=== PATIENT | female | born 1975 | race Caucasian/White ===

== ENCOUNTER 2019-01-30 22:23 | Inpatient (IN) | payer OTHER ==
[~2019-01-30] VITALS: Ht 167.6 cm; Wt 93.4 kg
[~2019-01-30 22:23] MED LIST: COLACE1 EAC1 PO; IBUPROFEN 800800 M1 PO; KEFLEX500 MG PO; LIBRIUM10 MG PO; NOHOMEMEDICATIONS; NORCO 5-325 TA1 EACH PO; PRENATAL; TRAMADOL 50 MG50 MG PO
[2019-01-30 22:26] VITALS: BP 162/74
--- NOTE | 2019-01-30 22:30 | NUR ---
PT STATED "I'VE TAKEN TWO BOTTLES OF TYLENOL THIS WEEK FOR THE PAIN." SHE WAS UNSURE THE DOSAGE OR SIZE OF THE BOTTLES.
[2019-01-30] MEDS ORDERED: BUSPIRONE HCL10 MG PO (22:36)
[2019-01-30] MEDS ORDERED: TRAZODONE HCL50 MG PO (22:36)
[2019-01-30 22:53] LABS: RBC 1.82 mil/uL (4.20-5.00)
[2019-01-30 22:54] LABS: MCH 20.9 pg (26.0-34.0); MCHC 27.3 g/dL (28.0-37.0); MCV 76.5 fL (80.0-100.0); PLATELET COUNT 567 thou/uL (150-400); WBC 38.5 thou/uL (4.0-11.0)
[2019-01-30 22:57] LABS: ANION GAP 18 mmol/L (7-16); BUN 22 mg/dL (7-18); CALCIUM 8.4 mg/dL (8.5-10.1); CHLORIDE 90 mmol/L (98-107); CO2 17 mmol/L (21-32); CREATININE 1.3 mg/dL (0.6-1.0); GLUCOSE 221 mg/dL (74-106); POTASSIUM 3.7 mmol/L (3.5-5.1); SODIUM 125 mmol/L (136-145)
[2019-01-30 23:03] LABS: HCO3 15.9 mmol/L (22.0-26.0); PCO2 VENOUS 24.8 mmHg (41.0-51.0); PO2 VENOUS 18.9 mmHg (35.0-45.0)
[2019-01-30 23:04] LABS: HEMOGLOBIN 3.8 gm/dL (12.0-15.0)
[2019-01-30 23:06] LABS: ALBUMIN 1.8 g/dL (3.4-5.0); APTT 29.3 Seconds (24.5-32.8); DIRECT BILIRUBIN 2.4 mg/dL (<0.1-0.3); INR 1.5; PROTIME 15.3 Seconds (9.3-11.4); SGOT 132 U/L (15-37); SGPT 30 U/L (30-65); TOTAL PROTEIN 7.7 g/dL (6.4-8.2); TROPONIN-I <0.06 ng/mL (<0.06)
[2019-01-30 23:28] LABS: SALICYLATE < 2.8 mg/dL (2.8-20.0)
[2019-01-30 23:32] LABS: D-DIMER 3.65 ug/mLFEU (0.19-0.50)
[2019-01-30 23:51] LABS: ABSOLUTE NEUTROPHILS 33.1 thou/uL (1.4-8.2); NUCLEATED RBCS 5 /100WBC
[2019-01-30 23:55] LABS: URINE BILIRUBIN 2+ (Negative); URINE BLOOD NEGATIVE (Negative); URINE CLARITY CLEAR; URINE COLOR YELLOW; URINE GLUCOSE-RANDOM* NEGATIVE (Negative); URINE KETONES NEGATIVE (Negative); URINE LEUKOCYTES 2+ (Negative); URINE NITRITE NEGATIVE (Negative); URINE PROTEIN (DIPSTICK) TRACE (Negative); URINE SPECIFIC GRAVITY 1.025 (1.005-1.035)
[2019-01-30 23:56] LABS: ANISOCYTOSIS 3+; HYPOCHROMASIA 2+; MICROCYTES 2+; POLYCHROMASIA 2+; TARGET CELLS 1+; TEARDROPS RARE
[2019-01-30 23:57] LABS: PLATELET ESTIMATE MARKEDLY INCREASED
[2019-01-31] VITALS (80 sets, daily range): BP systolic 56–191; BP diastolic 27–111
[2019-01-31 00:01] LABS: % SATURATION 4 % (20-39); IRON 9 ug/dL (50-170); TIBC 234 ug/dL (250-450)
[2019-01-31 00:03] LABS: AMP/METHAMP Negative (Negative); BARBITURATES Negative (Negative); BENZODIAZEPINES Negative (Negative); COCAINE Negative (Negative); METHADONE Negative (Negative); OPIATES Negative (Negative); PCP Negative (Negative)
[2019-01-31 00:16] LABS: CASTS None Seen /LPF (None Seen); CRYSTALS None Seen /LPF (None Seen); MUCUS 0-3 Light strn/LPF (None Seen); SQUAMOUS 4-10 Moderate /LPF (0-3); URINE RBC 3-10 Few /HPF (0-2); URINE WBC 6-15 Few /HPF (0-5)
--- NOTE | 2019-01-31 00:22 | NUR ---
RAFAL FROM LAB INFORMED ME VIA PHONE CALL THAT THE TYPE AND SCREEN WOULD BE DELAYED. PROVIDER NOTIFIED.
[2019-01-31] MEDS ORDERED: HYDROXYZINE PA100 MG PO (03:40)
[2019-01-31 05:04] LABS: CALCIUM 7.5 mg/dL (8.5-10.1); CREATININE 1.3 mg/dL (0.6-1.0); POTASSIUM 4.1 mmol/L (3.5-5.1)
[2019-01-31 05:06] LABS: MAGNESIUM 2.1 mg/dL (1.8-2.4); PHOSPHORUS 3.3 mg/dL (2.5-4.9)
[2019-01-31 05:34] LABS: FOLIC ACID 14.4 ng/mL (8.6-58.9)
--- NOTE | 2019-01-31 06:25 | NUR ---
ADMISSION NOTE: PT ARRIVED FROM ER IN [facility] WITH BENNY OCAMPO. ADMISSION HX AND ASSESSMENT COMPLETED AND DOCUMENTED. VSS ON ARRIVAL. C/O PAIN ON ARRIVAL. 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 SEPSIS PROTOCOL ORDERED. WILL CONTINUE TO MONITOR.
--- NOTE | 2019-01-31 06:31 | NUR ---
PT AOX4. ON 3L NC. VSS. FEBRILE, LOW GRADE TEMP. C/O NON CARDIAC CHEST PAIN, MEDS GIVEN. NPO CURRENTLY. BLOOD CURRENTLY ONGOING. ON INSULIN GTT T 2 UNITS/HR. VARMA IN PLACE, OUTPUT NOTED. NO COMPLAINS PRESENTLY. WILL CONTINUE TO MONITOR
[2019-01-31 09:11] LABS: HEMOGLOBIN 3.8 g/dL (11.1-15.9)
[2019-01-31 09:17] LABS: RBC 2.09 mil/uL (4.20-5.00)
[2019-01-31 09:19] LABS: MCH 22.9 pg (26.0-34.0); MCV 76.4 fL (80.0-100.0); RDW 23.4 % (10.5-14.5); WBC 35.4 thou/uL (4.0-11.0)
[2019-01-31 09:23] LABS: PLATELET COUNT 381 thou/uL (150-400)
[2019-01-31 09:24] LABS: HEMOGLOBIN 4.8 gm/dL (12.0-15.0)
--- NOTE | 2019-01-31 09:28 | EKG ---
[place] [address] [address] [facility] [address] ELECTROCARDIOGRAM REPORT Name: THANG KEVIN Room #: 240-P ADM IN M.R.#: [id number] ������������������ Admission: 01/31/19 ������������������ Attend Phys: Ivan Pryor MD Discharge: ������������������ Date of : 71 Report #: [id number] ����������������������������������������������������������������� [id number] THIS REPORT FOR: //name// [facility] ED Test Date: 2019-01-30 Test Time: 22:43:57 Pat Name: THANG KEVIN Department: Room: 240 Gender: F Dispatch Lead: INGE : 1975 Requested By: Harley Quinteros Order Number: [id number] MD: Dano Snow Measurements Intervals [place] Rate: 134 P: -32 TX: 109 QRS: -9 QRSD: 101 T: 41 QT: 319 QTc: 477 Interpretive Statements Sinus tachycardia RSR' in V1 or V2, right VCD Borderline prolonged QT interval No previous ECG available for comparison Electronically Signed On 01-31-2019 9:28:26 CDT by Dano Snow [email or web address] ��������������������������������������������� <ELECTRONICALLY SIGNED> ���������������������������������������� By: Dano Snow MD, MERGED WITH [facility] ��������������������������������������������� 01/31/19 0928 [id number] 224 Dano Snow MD, FAC /EPI
[2019-01-31 10:19] LABS: ALBUMIN 1.7 g/dL (3.4-5.0); DIRECT BILIRUBIN 2.2 mg/dL (<0.1-0.3); TOTAL BILIRUBIN 2.6 mg/dL (<0.1-1.0); TOTAL PROTEIN 6.6 g/dL (6.4-8.2)
[2019-01-31 10:28] LABS: ABSOLUTE NEUTROPHILS 31.9 thou/uL (1.4-8.2); NUCLEATED RBCS 3 /100WBC
[2019-01-31 10:29] LABS: ANISOCYTOSIS 3+; HYPOCHROMASIA 2+; POLYCHROMASIA SLIGHT
--- NOTE | 2019-01-31 10:30 | NUR ---
Met with patient she admits with resp distress. 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 She just rec Ativan and very groggy. She does not want casemgt to call her mother. Her mother is emergency contact. She reports her mother aware she is admitted to hospital. She has 2 children 13, 7. She reports oldest lives with grandmother and younger lives with father of child. She reports she drinks ETOH about every other day. Patient falling asleep. Casemgt following for dc planning.
[2019-01-31 10:59] LABS: INR 1.5; PROTIME 15.5 Seconds (9.3-11.4)
--- NOTE | 2019-01-31 13:54 | NUR ---
CONSULTED TO PLACE A PICC FOR THIS PATIENT IN THE ICU. MULTIPLE IV GTT INFUSING. CONSENT OBTAINED FROM THE DPOA BY THE PULMONARY SPECIALIST. THE PATIENT IS CONFUSED, DISCUSSED WITH HER THE PROCEDURE WELL BENIFITS AND RISKS AND SHE DID NOT EXPRESS UNDERSTANDING. THE RIGHT UPPER ARM BASILIC WAS WIDLEY PATENT A #5F TRIPLE LUMEN POWER PICC WAS PLACED AFTER A BEDSIDE TIMEOUT WAS COMPLETE. LINE WAS TRIMMED TO 37CM AND ADVANCED WITHOUT DIFFICULTY. LINE CONFIRMED TO BE IN GOOD POSITION BY A STAT CHEST XRAY. LINE SECURED AND RELEASED FOR USE
--- NOTE | 2019-01-31 16:30 | NUR ---
PT IS ALERT AND ORIENTED X2 WITH PERIODS OF CONFUSION NOTED. ETOH ABUSE. DRINKS EVERYDAY AFTER WORK 4 BEERS. ANXIETY AND DEPRESSION. DID DO A ALCOHOLIC REHAB YEARS AGO BUT IS STILL DRINKING. LUNGS ARE CLEAR TO DIMINISHED. ON 3LITERS OF OXYGEN. SKIN IS JAUNDICE WITH ROUND ABODMINAL ASCITIES NOTED. VARMA TO DD WITH ALLAN URINE PRESENT. PLEUAL EFFUSIONS NOTED WENT TO IR FOR CHEST TUBE PLACMENTS TODAY. A TOTAL OF 3 UNITS OF PRBC GIVEN TO PT FOR LOW HGB. CIWA SCALE WAS A 11 BUT AFTER MEDS GIVEN IS A 3 NOW. WITH SOME ANXIETY NOTED AT TIMES. WILL CONTINUE TO ASSESS AND MONITOR. CONSULTS DONE TODAY PER PHYSICANS
[2019-01-31 18:12] LABS: HEMATOCRIT 20.1 % (37.0-47.0); MCH 25.6 pg (26.0-34.0); RBC 2.51 mil/uL (4.20-5.00); RDW 23.5 % (10.5-14.5); WBC 30.6 thou/uL (4.0-11.0)
[2019-01-31 18:13] LABS: PLATELET COUNT 284 thou/uL (150-400)
[2019-01-31 18:20] LABS: HEMOGLOBIN 6.4 gm/dL (12.0-15.0)
[2019-01-31 18:53] LABS: ABSOLUTE NEUTROPHILS 27.2 thou/uL (1.4-8.2); METAMYELOCYTES 1 %
[2019-01-31 18:54] LABS: ANISOCYTOSIS 3+; HYPOCHROMASIA 2+
[2019-01-31 19:13] LABS: BF NUCLEATED CELLS 56199; BF RBC 32723
[2019-01-31 19:18] LABS: BF NUCLEATED CELLS 75143; BF RBC 26897
[2019-01-31 19:27] LABS: TOTAL VOLUME 3 mL
[2019-01-31 19:27] LABS: CLARITY CLOUDY; COLOR YELLOW; TOTAL VOLUME 5 mL
[2019-01-31 19:28] LABS: CLARITY CLOUDY; COLOR YELLOW
[2019-01-31 20:43] LABS: SOURCE PLEURAL
[2019-01-31 20:47] LABS: BF MACROPHAGE 41; BF NEUTROPHILS 37
[2019-01-31 20:51] LABS: SOURCE PLEURAL
[2019-01-31 20:53] LABS: BF MACROPHAGE 7; BF NEUTROPHILS 82
[2019-01-31 22:06] LABS: HIV ANTIBODY Non Reactive (Non Reactive)
[2019-01-31 23:07] LABS: HAV IgM AB (ANTI-HAV IgM) Negative (Negative); HEPATITIS B SURFACE AG Negative (Negative); HEPATITIS C VIRUS AB 0.2 (0.0-0.9)
[2019-02-01] VITALS (53 sets, daily range): BP systolic 94–138; BP diastolic 50–89
[2019-02-01 04:31] LABS: HEMOGLOBIN 7.7 gm/dL (12.0-15.0); MCH 26.7 pg (26.0-34.0); MCHC 32.2 g/dL (28.0-37.0); MCV 82.8 fL (80.0-100.0); PLATELET COUNT 270 thou/uL (150-400); RBC 2.89 mil/uL (4.20-5.00); RDW 21.4 % (10.5-14.5); WBC 26.4 thou/uL (4.0-11.0)
[2019-02-01 04:33] LABS: CREATININE 0.7 mg/dL (0.6-1.0); MAGNESIUM 2.2 mg/dL (1.8-2.4); PHOSPHORUS 2.5 mg/dL (2.5-4.9)
--- NOTE | 2019-02-01 04:52 | NUR ---
PT RECEIVED ONE UNIT PRBC LAST NIGHT, DUE TO HGB < 7 AT 1800. THIS WAS THE PT'S FOURTH UNIT SINCE ADMISSION. HGB IS NOW 7.7 THIS MORNING. RT LATERAL AND MEDIASTINAL CHEST TUBES PLACED YESTERDAY AFTERNOON; TUBES ARE PATENT WITH NO LEAK. DRAINAGE IS YELLOW/PURULENT. PT C/O OF PAIN ON RT SIDE OF CHEST AROUND CHEST TUBE INSERTION SITE, WHICH WAS WORSE WHEN COUGHING AND MOVING AROUND. FENTANYL WAS GIVEN AND PT REPORTED PAIN RELIEF, AND SAID IT EASED HER BREATHING. PT HAD ONE INCIDENCE OF AGITATION THIS AM AND SOME MILD ANXIETY THROUGHOUT THE NIGHT; HIGHEST CIWA SCORE WAS 6. PT IS PROGRESSING. WILL CONTINUE TO MONITOR.
[2019-02-01 05:35] LABS: BE(vivo) -1.5 mmol/L (-2 to +3); PCO2 32.1 mmHg (35.0-45.0); PO2 81.5 mmHg (80.0-100.0); pH 7.453 (7.360-7.450); sO2 96.6 % (92.0-98.0)
[2019-02-01 05:42] LABS: ABSOLUTE NEUTROPHILS 22.4 thou/uL (1.4-8.2); METAMYELOCYTES 1 %
[2019-02-01 05:43] LABS: ANISOCYTOSIS 2+; POLYCHROMASIA 2+; TARGET CELLS 1+
[2019-02-01 05:44] LABS: PLATELET ESTIMATE NORMAL; TEARDROPS 1+
[2019-02-01 08:40] LABS: SOURCE THORACENTESIS
[2019-02-01 08:40] LABS: SOURCE THORACENTESIS
[2019-02-01 09:12] LABS: BODY FLUID ALBUMIN 1.2 g/dL (()); BODY FLUID AMYLASE 39 U/L (()); BODY FLUID GLUCOSE < 2 mg/dL (()); BODY FLUID LDH 5639 IU/L (()); BODY FLUID PROTEIN 4.8 g/dL (())
[2019-02-01 09:12] LABS: BODY FLUID ALBUMIN 1.6 g/dL (()); BODY FLUID AMYLASE 34 U/L (()); BODY FLUID GLUCOSE < 2 mg/dL (()); BODY FLUID LDH 5273 IU/L (())
[2019-02-01 10:51] LABS: HEMATOCRIT 25.5 % (37.0-47.0); HEMOGLOBIN 8.2 gm/dL (12.0-15.0)
--- NOTE | 2019-02-01 16:05 | HC ---
[facility] [place] [address] CONSULTATION Name: THANG KEVIN Room #: 240-P [facility] IN .R.#: [id number] Admission: 01/31/19 ������������������ Attend Phys: Ivan Pryor MD Discharge: ������������������ Date of : 71 Report #: [id number] THIS REPORT FOR: //name// CC: FAM unknown Ivan Pryor DATE OF SERVICE: 01/31/2019 REASON FOR CONSULTATION: I was asked to evaluate concerning pneumonia and severe sepsis. HISTORY OF PRESENT ILLNESS: The patient is a 43-year-old with known alcohol abuse, presents with progressive shortness of breath over the last 3 days. For the last couple of weeks, she has had cold, upper respiratory tract infection symptoms with cough. She then developed pleuritic type chest pain on the right. Denies any fever. Has had yellow sputum without hemoptysis. No specific trauma identified. Did have some nausea and vomiting. Does not describe any diarrhea. Denies any hemoptysis or bloody stools. She had no travel. The patient was a poor historian, was very lethargic and unable to give a complete history. I did discuss with nursing at the bedside as well as review of her previous records. She does smoke cigarettes. Of note, she has had previous pneumonia. REVIEW OF SYSTEMS: A 10-point review was negative other than what was described above. PAST MEDICAL HISTORY: Knee surgery, anxiety, alcohol abuse, depression. FAMILY HISTORY: Heart disease, diabetes, thyroid disease. SOCIAL HISTORY: Smoker. Daily alcohol intake, reports beer. Denies any HIV risk factors or other social situation. ALLERGIES: None. MEDICATIONS: As noted on MAR including vancomycin and Zosyn. She is also given hydrocortisone and insulin. PHYSICAL EXAMINATION: VITAL SIGNS: Temperature 36.8, heart rate 112, respiratory rate 28, blood pressure 123/68. She is on 3 liters of oxygen per nasal cannula. GENERAL: She was lethargic. Nursing had just given her some Ativan. She was able to be aroused, but she was not otherwise conversant unless talked to. SKIN: Mild icteric. No rashes or decubiti noted. No palpable adenopathy. [facility] [address] [place] [address] CONSULTATION Name: THANG KEVIN Room #: 240-P ADM IN M.R.#: [id number] Admission: 01/31/19 ������������������ Attend Phys: Ivan Pryor MD Discharge: ������������������ Date of : 71 Report #: [id number] EYES: With scleral icterus. MOUTH: Without mucositis. NECK: Supple. LUNGS: Decreased breath sounds in the right posterior chest. Could not appreciate any rub. CHEST: Left lung was clear. HEART: Regular without appreciable murmur, gallop or rub. ABDOMEN: Distended. Unable to palpate liver or spleen or other appreciable mass. She was nontender. GENITOURINARY: External genitalia unremarkable with indwelling Betancourt catheter. RECTAL: Not performed. EXTREMITIES: No clubbing, cyanosis or edema. Cranial nerves intact. Able to move all extremities. Sensation intact. Mood depressed with lethargy, I suspect from her Ativan. LABORATORY STUDIES: Lactate 3.6. Procalcitonin 3.8. Sodium 137, potassium 4.1, bicarbonate 22, creatinine 1.3, AST 132, ALT 30, alkaline phosphatase 338, GGTP 383, bilirubin 3, albumin 1.8. Ammonia 14. Drug screen negative. Alcohol level 144 on admission. Hemoglobin on admission was 3.8, currently 4.8; white count 35.4. Differential with 80% segs, 6% bands, platelet count 381,000. Urinalysis 6-15 wbc's, moderate bacteria. CT of the chest shows complex right effusion with pneumonia, right lower lobe and right middle lobe. IMPRESSION: 1. A 43-year-old with alcoholic cirrhosis, presents with complicated pneumonia, right lung, community acquired, may have a component of aspiration. Has loculated pleural effusions as noted on her CAT scan. The patient is currently symptomatic with pleuritic chest pain. 2. Cirrhosis of the liver. 3. Alcohol abuse. 4. Profound anemia. 5. Acute kidney injury. 6. History of depression. 7. Lactic acidosis. RECOMMENDATION: 1. The patient will remain in the Intensive Care Unit for further monitoring. 2. Drain right chest fluid, Interventional Radiology. 3. Obtain blood culture, sputum culture, urine antigens, viral respiratory panel. 4. Continue broad antibiotic coverage, pending further studies. 5. Blood transfusion and further workup of her anemia. I have discussed the case with GI service regarding this. [address] [address] CONSULTATION Name: THANG KEVIN Room #: 240-P [facility] IN ..#: [id number] Admission: 01/31/19 ������������������ Attend Phys: Ivan Pryor MD Discharge: ������������������ Date of : 71 Report #: [id number] 6. Alcohol treatment for withdrawal. Following this, we will need further alcohol counseling. ��������������������������������������������� <ELECTRONICALLY SIGNED> ���������������������������������������� By: Gregg Spann MD ��������������������������������������������� 02/01/19 1605 1016 0256 Gregg Spann MD /nt
--- NOTE | 2019-02-01 17:04 | HC ---
[facility] [place] [address] CONSULTATION Name: DORITATHANG Jarquin Room #: 240-P [facility] IN ..#: [id number] Admission: 01/31/19 ������������������ Attend Phys: Ivan Pryor MD Discharge: ������������������ Date of : 71 Report #: [id number] THIS REPORT FOR: //name// CC: FAM unknown Ivan Pryor DATE OF SERVICE: 01/31/2019 We were asked to see the patient by the hospitalists. HISTORY OF PRESENT ILLNESS: The patient is a 43-year-old in the Intensive Care Unit. The patient was admitted on 01/31 with shortness of breath that began 4 days prior to admission. The patient states that she had a cold last week and during a coughing episode she heard a crack in her ribs and felt a sharp pain. A few days prior to admission, the patient was sneezing and states that she has had the same rib pain. Four days ago, the patient began to feel short of air, lying down and exertion exaggerates and aggravates symptoms. Shortness of air has gotten better in the past few days, but the rib pain has not. The patient also notes abdominal distention. The patient states she took 2 bottles of Tylenol this week, but the dosage was 500 mg every 3-4 hours. PAST MEDICAL HISTORY: Significant for a history of alcohol abuse. PAST SURGICAL HISTORY: Knee surgery. CURRENT MEDICATIONS AT HOME: Tramadol, buspirone and trazodone. ALLERGIES: None known. SOCIAL HISTORY: Use of cigarettes in the past and current alcohol use. No other recreational drug use. REVIEW OF SYSTEMS: CONSTITUTIONAL: The patient denies fever or chills. EYES: Negative for pain or visual change. HEENT: Negative for rhinorrhea or sore throat. RESPIRATORY: As mentioned, short of air. CARDIAC: No chest pain, no palpitations. GASTROINTESTINAL: As mentioned, distended abdomen. No abdominal pain, nausea, vomiting, diarrhea. GENITOURINARY: No burning, frequency, urgency or blood. MUSCULOSKELETAL: No back pain or muscle pain other than the lateral chest pain described. SKIN: No rash or infection. NEUROLOGIC: No motor or sensory dysfunction. [facility] [address] [place] [address] CONSULTATION Name: THANG KEVIN Room #: 240-P [facility] IN ..#: [id number] Admission: 01/31/19 ������������������ Attend Phys: Ivan Pryor MD Discharge: ������������������ Date of : 71 Report #: [id number] ENDOCRINE: No goiter, no tremor. VITAL SIGNS: Today 123/68, heart rate 112, respiratory rate 28, O2 sat 94%. FAMILY HISTORY: Mother is 75 years old and alive. Father in his 60s, had Parkinson disease. PHYSICAL EXAMINATION: GENERAL: The patient is in bed, is pallid, is a bit sleepy, having just received some Ativan. HEENT: Normocephalic. Pupils are round and equal and reactive. CHEST: Decreased breath sounds, right chest. HEART: Rhythm regular, no murmur. NECK: No mass, no bruit. ABDOMEN: Soft, somewhat distended. No tenderness. SKIN: Pale. No rash or infection. NEUROLOGIC: No obvious motor or sensory dysfunction. The patient appears to be a bit sedated. PSYCHIATRIC: As the patient is sedated, difficult to evaluate. We note that the patient had a large pleural effusion seen on chest x-ray and CT scan on admission and hemoglobin was low in the 3-4 range with a leukemoid reaction. White count of 35,000 or so. We note that the patient is scheduled for CT-guided thoracentesis or tube placement. If there is a significant loculated effusion at the end of this, then it may be reasonable to perform a video-assisted thoracoscopy and/or thoracotomy. It would be nice to transfuse the patient first and continue antibiotics in the interim. We note that albumin is 1.7 and this reflects some chronic anemia and/or hepatic dysfunction. Clotting studies may need to be addressed as well. It is privilege to participate in this challenging patient's care. Thank you for the consult. ��������������������������������������������� <ELECTRONICALLY SIGNED> ���������������������������������������� By: Nir Sandoval MD ��������������������������������������������� 02/01/19 1704 1422 0633 Nir Sandoval MD /nt
[2019-02-01 23:07] LABS: GLYCOHEMOGLOBIN (HGB A1C) 5.3 % (4.8-5.6)
[2019-02-02] VITALS (20 sets, daily range): BP systolic 99–140; BP diastolic 51–88
[2019-02-02 01:12] LABS: HEMATOCRIT 24.9 % (37.0-47.0); HEMOGLOBIN 8.1 gm/dL (12.0-15.0)
--- NOTE | 2019-02-02 04:28 | NUR ---
ASSUMED PT CARE AT 1900. VSS. PT A&0X4. PT WAS ON 2L NC FOR COMFORT BUT SHE SATS WELL ON ROOM AIR. 24 HOUR URINE COLLECTION STILL IN PROGRESS. PT GOT UP A FEW TIMES THIS SHIFT TO HAVE A BM; THEY WERE SMALL SMEARS. PT CIWA SCORING AT 2000, 0000, 0400 WERE 6, 9 & 4 RESPECTIVELY. 1M OF ATIVAN GIVEN ONLY ONCE THIS SHIFT AROUND 0000 WHEN PT WAS AGITATED AND FRUSTRATED WITH ALL THE TUBES, WIRES AND CORDS ATTACHED TO HER. Q6 H&H DONE, PT HGB REMAINS STABLE ENOUGHT TO NOT WARRANT A TRANSFUSSION. ORDERED MEDS HEAD CD REACTOR OPERATOR PER DEC, WILL CONTINUE TO MONITOR PER POC
[2019-02-02 05:49] LABS: HEMATOCRIT 23.4 % (37.0-47.0); HEMOGLOBIN 7.6 gm/dL (12.0-15.0); MCH 26.4 pg (26.0-34.0); MCHC 32.5 g/dL (28.0-37.0); MCV 81.4 fL (80.0-100.0); PLATELET COUNT 250 thou/uL (150-400); RBC 2.88 mil/uL (4.20-5.00); RDW 22.3 % (10.5-14.5)
[2019-02-02 06:08] LABS: ALBUMIN 1.4 g/dL (3.4-5.0); CALCIUM 7.7 mg/dL (8.5-10.1); CREATININE 0.7 mg/dL (0.6-1.0); MAGNESIUM 1.9 mg/dL (1.8-2.4); PHOSPHORUS 2.2 mg/dL (2.5-4.9); POTASSIUM 3.3 mmol/L (3.5-5.1); TOTAL PROTEIN 6.4 g/dL (6.4-8.2)
[2019-02-02 06:37] LABS: ABSOLUTE NEUTROPHILS 18.9 thou/uL (1.4-8.2); ANISOCYTOSIS 3+; POLYCHROMASIA 2+
[2019-02-02 06:44] LABS: PLATELET ESTIMATE NORMAL
[2019-02-02 12:10] LABS: HEMATOCRIT 24.9 % (37.0-47.0); HEMOGLOBIN 8.1 gm/dL (12.0-15.0)
--- NOTE | 2019-02-02 19:30 | NUR ---
Pt has been mostly oriented today. Periods of restlessness and impulsive behavior. Fall precautions in place. Sinus rhythm. Room air. SOA with exertion. Tolerating meals. No stools today. Betancourt patent with adquate urine output. PICC line intact. Mediastinal and right chest tube patent to -20 cm of suction per Atruim drain. No air leak. Medicated for pain as needed-see MAR. Need sputum specimen for legionella and one additional lab test.
[2019-02-03] VITALS (18 sets, daily range): BP systolic 98–152; BP diastolic 64–111
[2019-02-03 00:08] LABS: HEMATOCRIT 24.8 % (37.0-47.0); HEMOGLOBIN 7.9 gm/dL (12.0-15.0)
--- NOTE | 2019-02-03 02:53 | NUR ---
ASSUMED CARE OF PT AT 1900. PT ORIENTED X4. ABLE TO CONSISTANTLY ANSWER ORIENATION QUESTIONS. PT HAS BEEN IMPULSIVE AND RESTLESS AT TIMES. FALL PRECAUTIONS IN PLACE. PT DOES ATTEMPT TO GET OUT OF BED WITHOUT ASSISTANCE. PRN PAIN MEDS AND ATIVAN GIVEN PER ORDERS. PT VERBALIZE TO RN THAT SHE WANTED TO LEAVE AND THAT. EDUCATION WAS PROVIDED TO WHY WE HAD TO MANAGE HER CARE IN THE HOSPITAL. WILL CONTINUE TO MONITOR PT.
[2019-02-03 05:05] LABS: HEMATOCRIT 24.4 % (37.0-47.0); HEMOGLOBIN 7.6 gm/dL (12.0-15.0); MCHC 31.3 g/dL (28.0-37.0); RBC 2.94 mil/uL (4.20-5.00); RDW 22.6 % (10.5-14.5); WBC 17.1 thou/uL (4.0-11.0)
[2019-02-03 05:20] LABS: ALBUMIN 1.5 g/dL (3.4-5.0); CALCIUM 7.9 mg/dL (8.5-10.1); CREATININE 0.6 mg/dL (0.6-1.0); PHOSPHORUS 2.8 mg/dL (2.5-4.9); POTASSIUM 3.5 mmol/L (3.5-5.1)
[2019-02-03 09:55] LABS: HEMATOCRIT 25.4 % (37.0-47.0); HEMOGLOBIN 8.1 gm/dL (12.0-15.0)
--- NOTE | 2019-02-03 18:26 | NUR ---
end of shift note. pt very agitated this am started on precedex after ativan not working. Sedated now, arouses to name and follows command. VSS. 2L nasal cannula. Chest tubes intact. No air leak.
[2019-02-03 19:38] LABS: HEMATOCRIT 25.4 % (37.0-47.0); HEMOGLOBIN 8.1 gm/dL (12.0-15.0)
[2019-02-04] VITALS (18 sets, daily range): BP systolic 95–197; BP diastolic 40–158
[2019-02-04 00:24] LABS: HEMATOCRIT 25.9 % (37.0-47.0); HEMOGLOBIN 8.2 gm/dL (12.0-15.0)
[2019-02-04 05:46] LABS: HEMOGLOBIN 8.1 gm/dL (12.0-15.0); MCH 26.8 pg (26.0-34.0); MCHC 32.4 g/dL (28.0-37.0); RBC 3.01 mil/uL (4.20-5.00); RDW 23.4 % (10.5-14.5); WBC 16.7 thou/uL (4.0-11.0)
--- NOTE | 2019-02-04 05:47 | NUR ---
ASSESSMENTS CHARTED. PATIENT SEDATED DURING SHIFT BUT AROUSES SPONTANIOUSLY AND TO TOUCH AND NAME. ON PRESEDEX. VERBAL AND TACTAL HALLUCINATIONS. IN ARM RESTRAINTS, STILL PULLING AT CLOTHING. Q2 TURNS DURING SHIFT. CHEST TUBES PATENT AND TO SUCTION. BLOOD CULTURE CAME BACK POSITIVE FOR GRAM POSITIVE COCCI, VIMAL NOTIFIED. NO NEW ORDERS RECEIVED. PLAN OF CARE TO CONTINUE ABX TREATMENT. CONTINUE SUPPORT THROUGH ETOH WITHDRAW SO PATIENT CAN HAVE SURGERY.
[2019-02-04 06:01] LABS: ALBUMIN 1.4 g/dL (3.4-5.0); CALCIUM 7.6 mg/dL (8.5-10.1); CREATININE 0.6 mg/dL (0.6-1.0); MAGNESIUM 1.4 mg/dL (1.8-2.4); POTASSIUM 3.5 mmol/L (3.5-5.1); TOTAL BILIRUBIN 3.4 mg/dL (<0.1-1.0)
--- NOTE | 2019-02-04 15:20 | NUR ---
VASCULAR ACCESS NURSE ROUNDING. PICC LINE CONTINUES TO BE NECESSARY. ICU PATIENT ON MULTIPLE GTTS
--- NOTE | 2019-02-04 16:52 | NUR ---
FOLLOWING [facility] DC PLANNING. PT HAD CT X2 PLACED 01/31/19. REQUIRED PRECEDEX GTT INITIATION FOR HIGH CIWA SCORE 02/03/19. REMAINS SOMULENT. PT WITHOUT MEDICAL INSURANCE, [facility] HAS REFERRAL BUT HAS BEEN UNABLE TO MEET WITH PT R/T PT'S ALTERED MENTAL STATUS.
[2019-02-04 19:38] LABS: MAGNESIUM 1.4 mg/dL (1.8-2.4); POTASSIUM 3.8 mmol/L (3.5-5.1)
--- NOTE | 2019-02-04 19:57 | NUR ---
END OF SHIFT NOTE. PT MUCH CALMER TODAY. STILL HAVING SOME HALLUCINATIONS AND GARBLED SPEECH BUT CIWA DOWN TO 3. STARTING TO WEAN DOWN PRECEDEX. MEDICATED X 1 FOR PAIN. CHEST TUBE DRESSINGS DONE. VSS. AFEBRILE. JESSICAO TR CALLED TO DR. KELLER. NO NEW ORDERS. ALSO REPORTED STREP +.
[2019-02-05] VITALS (30 sets, daily range): BP systolic 94–128; BP diastolic 49–79
[2019-02-05 04:22] LABS: HEMATOCRIT 24.6 % (37.0-47.0); HEMOGLOBIN 7.9 gm/dL (12.0-15.0); MCH 26.2 pg (26.0-34.0); MCV 81.9 fL (80.0-100.0); RBC 3.01 mil/uL (4.20-5.00); RDW 24.6 % (10.5-14.5); WBC 19.5 thou/uL (4.0-11.0)
--- NOTE | 2019-02-05 05:30 | NUR ---
ASSUMED PT CARE AT 1900. PT A/OX4, VITAL SIGNS STABLE, ASSESSMENT CHARTED. CHEST TUBE IN PLACE. PAIN ADEQAUTELY MANAGED WITH PAIN MEDICATION. PT HAD A FEW EPISODES OF SOB, DEEP BREATHING SEEMED TO HELP. PT RESTED WELL THROUGH THE NIGHT. PROGRESSING TOWARD PLAN OF CARE. WILL CONTINUE TO MONITOR.
[2019-02-05 07:13] LABS: ADENOVIRUS Negative (Negative); INFLUENZA A Negative (Negative); INFLUENZA B Negative (Negative); METAPNEUMOVIRUS Negative (Negative); PARAINFLUENZA 1 Negative (Negative); PARAINFLUENZA 2 Negative (Negative); PARAINFLUENZA 3 Negative (Negative); RHINOVIRUS Negative (Negative); RSV A Negative (Negative); RSV B Negative (Negative)
--- NOTE | 2019-02-05 09:06 | PATH ---
[facility] [address] [address] PATHOLOGY RPT PROCEDURE Name: THANG KEVIN Room #: 240-P ADM IN M.R.#: [id number] ������������������ Admission: 01/31/19 ������������������ Date of : 71 Discharge: Report #: [id number] Path Case #: [id number] Note [facility] Accession Number: [id number] TESTS RESULT FLAG UNITS REF RANGE LAB Clinician Provided Cytology Information No. of containers..01 Other (Miscellaneous) Source: 01 RT MEDIAL CHEST TUBE DIAGNOSIS: 02 RIGHT MEDIAL CHEST TUBE NEGATIVE FOR MALIGNANT CELLS. MESOTHELIAL CELLS ARE PRESENT. PROTEINACEOUS MATERIAL IS PRESENT. THIS INTERPRETATION INCLUDES EVALUATION OF A CELL BLOCK. MARKED ACUTE INFLAMMATION. Pathologist ICD10: 02 A41.9 Signed out by: 02 Kari Melendrez MD, Pathologist NPI- [id number] Performed by: Mykel Yeager, Fire Protection Engineering Technician ([facility]) Gross description: 01 3ML, YELLOW, CLOUDY /LCS FLAG LEGEND: L-Low Normal,H-High Normal,LL-Alert Low,HH-Alert High <-Panic Low,>-Panic High,A-Abnormal,AA-Critical Abnormal Performed at: [address] [place] [address] Margarito Sellers MD, [address] [address] Kari Melendrez MD, Specimen Comment: A courtesy copy of this report has been sent to Specimen Comment: [phone]. Specimen Comment: Report sent to Specimen Comment: A duplicate report has been generated due to demographic updates. Performed at: [address], [place], [place] [id number] [address] [address] PATHOLOGY RPT PROCEDURE Name: THANG KEVIN Room #: 240-P ADM IN M.R.#: [id number] ������������������ Admission: 01/31/19 ������������������ Date of : 71 Discharge: Report #: [id number] Path Case #: [id number] MD Margarito Sellers MD Phone: [phone]
--- NOTE | 2019-02-05 10:06 | PATH ---
[facility] [address] [place] [address] PATHOLOGY RPT PROCEDURE Name: THANG KEVIN Room #: 240-P ADM IN M.R.#: [id number] ������������������ Admission: 01/31/19 ������������������ Date of : 71 Discharge: Report #: [id number] Path Case #: [id number] Note [facility] Accession Number: [id number] TESTS RESULT FLAG UNITS REF RANGE LAB Clinician Provided Cytology Information No. of containers..01 Other (Miscellaneous) Source: 01 RT LATERAL CHST TUBE DIAGNOSIS: 02 RIGHT LATERAL CHST TUBE NEGATIVE FOR MALIGNANT CELLS. MESOTHELIAL CELLS ARE PRESENT. PROTEINACEOUS MATERIAL IS PRESENT. THIS INTERPRETATION INCLUDES EVALUATION OF A CELL BLOCK. MARKED ACUTE INFLAMMATION. Pathologist ICD10: 02 A41.9 Signed out by: Kari Melendrez MD, Pathologist NPI- [id number] Performed by: Mykel Yeager, Scalp Specialist ([facility]) Gross description: 01 2ML, YELLOW, CLOUDY /LCS FLAG LEGEND: L-Low Normal,H-High Normal,LL-Alert Low,HH-Alert High <-Panic Low,>-Panic High,A-Abnormal,AA-Critical Abnormal Performed at: [address] [place] [address] Margarito Sellers MD, [address] [address] Kari Melendrez MD, Specimen Comment: A courtesy copy of this report has been sent to Specimen Comment: [phone], . Specimen Comment: Report sent to DR DELGADO / DR KELLER Specimen Comment: A duplicate report has been generated due to demographic updates. Performed at: [address], [place], [place] [id number] [address] [address] PATHOLOGY RPT PROCEDURE Name: THANG KEVIN Room #: 240-P [facility] IN M.R.#: [id number] ������������������ Admission: 01/31/19 ������������������ Date of : 71 Discharge: Report #: [id number] Path Case #: [id number] MD Margarito Sellers MD Phone: [phone]
--- NOTE | 2019-02-05 10:21 | NUR ---
PT PEOP READY CONSENT SIGNED AND PT'S MOTHER SPOKE WITH TEAM RELATED TO PROCEDURE NEEDED BRONCHOSCOPY RIGHT VIDEO ASSISTED THORACOSCOPY WITH POSSIBLE RIGHT THORACOTOMY AND DECORTICATION. ANESTIA CONSULT DONE. TYPE AND SCREEN DONE AND CROSTMATCH DONE. VERBAZLIZES UNDERSTANDING OF PROCEDURE. NO CONCERNS OR ISSUES AT THIS TIME
--- NOTE | 2019-02-05 11:01 | NUR ---
PER RN, PT UNDERGOING EXTENSIVE SURGERY TODAY, WHICH IS A CHANGE IN MEDICAL STATUS AND REQUIRES NEW ORDERS FOR O.T. WHEN/IF APPROPRIATE.
--- NOTE | 2019-02-05 16:22 | NUR ---
PT IS ALERT AND ORIENTED X4. FOREGETFULL AT TIMES. LUNGS ARE CLEAR TO DIMINISHED. NSR ON THE POLYETHYLENE BAG MACHINE OPERATOR. WILL HAVE PROCEDURE TOMORROW AM CONSENT ON CHART. VARMA TO DD WITH ALLAN URINE. ASCITES ABDOMINAL NOTED. AND JAUNDICE. PAIN MEDS GIVEN WITH RELIEF PT IS SLEEPING. SITING IN UPRIGHT POSITION HELPS HER TO BREATHE BETTER. SCDS ON BILATERAL. FAMILY AT BEDSIDE TODAY FOR SUPPORT. WILL CONTINUE TO MONITOR AND ASSESS PER NURSING AT THIS TIME. NO ISSUES OR CONCERNS NOTED AT THIS TIME
--- NOTE | 2019-02-05 18:00 | NUR ---
CHANGED CHEST TUBE ATRIUM OUT WITH A NEW ONE IN PLACE AND PLACE TO SUCTION AT THIS TIME FOR PLAN OF CARE FOR PT.
[2019-02-06] VITALS (20 sets, daily range): BP systolic 94–133; BP diastolic 54–87
--- NOTE | 2019-02-06 06:19 | NUR ---
ASSUME CARE 1900. PT/VITALS STABLE. FENTANYL PATCH NOTED RIGHT UPPER CHEST AREA. HYDROCODONE FOR BREAK THROUGH PAIN. PT ON PRECEDEX FOR CIWA. CIWA SCORE IS ZERO FOR MOST OF THE NIGHT. PT A/O X 4 AND FOLLOWS COMMANDS.HIBICLENS SHOWER GIVEN WITH GOWN AND LINENS CHANGED. ASSESSMENT CHARTED. PROGRESING WELL WITH POC. PLAB IS FOR PT TO REMAIN NPO FOR THORACOTOMY TODAY. CALLED BLOOD BACK TO VERIFY BLOOD PRODUCT AVAILABILITY. WILL CONTINUE TO MONITOR AND FOLLW WITH POC.
[2019-02-06 07:40] LABS: HEMATOCRIT 24.4 % (37.0-47.0); HEMOGLOBIN 7.8 gm/dL (12.0-15.0); MCH 26.3 pg (26.0-34.0); MCV 82.3 fL (80.0-100.0); RBC 2.96 mil/uL (4.20-5.00); RDW 24.2 % (10.5-14.5); WBC 20.8 thou/uL (4.0-11.0)
[2019-02-06 08:00] LABS: CALCIUM 8.3 mg/dL (8.5-10.1); CREATININE 0.7 mg/dL (0.6-1.0); MAGNESIUM 1.6 mg/dL (1.8-2.4); POTASSIUM 3.1 mmol/L (3.5-5.1)
[2019-02-06 08:07] LABS: APTT 29.9 Seconds (24.5-32.8); INR 1.3; PROTIME 13.7 Seconds (9.3-11.4)
--- NOTE | 2019-02-06 08:15 | NUR ---
TO OR WITH OR STAFF.
--- NOTE | 2019-02-06 09:14 | HC ---
[facility] [place] [address] CONSULTATION Name: DORITATHANG Milka Room #: 240-P ADM IN .R.#: [id number] Admission: 01/31/19 ������������������ Attend Phys: Ivan Pryor MD Discharge: ������������������ Date of : 71 Report #: [id number] THIS REPORT FOR: //name// CC: FAM unknown Ivan Pryor MD DATE OF SERVICE: 01/31/[address] Ivan Pryor. CHIEF COMPLAINT: This is a 43-year-old white female who is seen in the ICU because of history of hemoglobin of 3.8 with microcytic indices and profound iron deficiency anemia. The patient did not come to the hospital with this complaint. She came with the complaint of shortness of air and chest pain for the last 2-3 weeks, worsening mostly over the last few days. She also has a history of alcohol use and probably cirrhosis with some ascites, hepatomegaly, splenomegaly and a history of hepatitis, but she does not know what type. She presents with what appears to be a sepsis with lactic acidosis, a white blood cell count of 40.8. She has a severe right middle lobe and the right lower lobe pneumonia with the right lung compressed by a huge loculated pleural effusion. Other findings included thrombocytosis with a platelet count over 500,000. She also has an elevated alkaline phosphatase and GGTP suggesting that there may be a component of primary biliary cirrhosis. She also has an elevated AST of 132 and ALT of 30, a bilirubin of 3.0 with a direct bilirubin of 2.4 and an INR of 1.5. She has a small amount of ascites as mentioned around the spleen and the liver. PAST SURGICAL HISTORY: Included knee surgery. ALLERGIES: No known drug allergies. MEDICATIONS: Prior to admission included buspirone, hydroxyzine, trazodone. SOCIAL HISTORY: She says she drinks 3-4 beers per day. She does not use street drugs. She smokes 1 pack of cigarettes per day. FAMILY HISTORY: Not taken. REVIEW OF SYSTEMS: She denies any dysphagia or odynophagia. She does have gastroesophageal reflux. She denies any history of hiatal hernia or peptic ulcer disease. Her weight has been stable. She thinks her appetite is usually good. She denies any melena or hematochezia, but she did have hematemesis a couple of weeks ago she believes. She did not have this evaluated. She has been told she has esophageal varices in the past by physicians at [facility] and we will request those records. She denies any diarrhea or [address] [address] CONSULTATION Name: THANG KEVIN Room #: 240-P [facility] IN [facility].#: [id number] Admission: 01/31/19 ������������������ Attend Phys: Ivan Pryor MD Discharge: ������������������ Date of : 71 Report #: [id number] constipation. She denies any abdominal pain. She does admit to increasing abdominal distention. She believes that she did have some sort of hepatitis in the past, but she does not know which type. We are checking hepatitis A, B and C. She also tells me that she took two bottles of Tylenol during the past week and in a patient with cirrhosis, this is quite a bit of Tylenol. We are rechecking her total bilirubin, liver enzymes and INR to make certain that they are headed downward and not upward at this time. PHYSICAL EXAMINATION: GENERAL: Reveals a well-developed, average size, 43-year-old white female, who is anxious and confused and may be going into some alcohol withdrawal. She is awake and appears to be alert for the most part when she is speaking. HEENT: She appears normocephalic and atraumatic and anicteric. HEART: Rate and rhythm are regular with a normal S1 and S2. LUNGS: Clear bilaterally. ABDOMEN: The abdomen is moderately distended. It is firm to palpation secondary to hepatomegaly. The right and left lobes of the liver are both enlarged and the left lobe is particularly prominent to palpation. She is nontender. Bowel sounds are high pitched at times and sometimes low pitched. EXTREMITIES: Warm and dry. RECTAL: I did not perform a rectal exam at this time as the patient is short of air and any type of movement increases her dyspnea. At some point in the near future, we will need to get a stool for occult blood and do a rectal exam once her pleural effusions have been tapped. NEUROLOGIC: She appears grossly intact without lateralizing signs, but I did not test her extensively neurologically. She does not appear to have a tremor yet. SIGNIFICANT LABORATORY DATA: Sodium was 125, chloride 90, CO2 17, BUN was 22 and creatinine was 1.3. Glucose is running between 100 and 200. Her AST on admission was 132, ALT was 30, alkaline phosphatase was 338, total bilirubin was 3.0, direct bilirubin 2.4. INR is 1.5, lipase is 228. Ultrasound of the liver shows a nodular heterogenous liver with a small amount of ascites. The pancreatic head was normal. The tail and the body were not well seen. There is mild splenomegaly. INR is 1.5. Her fibrinogen level was 479. D-dimer is 3.65. Drug screen is negative. Hemoglobin was 3.8 on admission. With 1 unit of blood, she came to 4.8 and she is receiving some more blood now. Platelet count is 567. Prealbumin is 5.8. TSH and folate are normal. B12 is high. The hepatitis A, B, C panel and MRSA and HIV antibody panel are all pending. Procalcitonin was elevated at 3.87 indicating some type of bacterial infection. IMPRESSION: 1. Profound iron deficiency anemia. The patient states she vomited blood 2 weeks ago. She has also been told at [facility] that she has esophageal varices. She denies melena or hematochezia, but she is not a good historian. [facility] [address] [place] [address] CONSULTATION Name: THANG KEVIN Room #: 240- ADM IN .R.#: [id number] Admission: 01/31/19 ������������������ Attend Phys: Ivan Pryor MD Discharge: ������������������ Date of : 71 Report #: [id number] 2. History of alcoholism. She only admits to 3-4 beers per day and this has been pretty consistent across many interviewers at this hospital. 3. Elevated alkaline phosphatase and GGTP. We will check a mitochondrial antibody to evaluate for possible primary biliary cirrhosis. 4. Sepsis with lactic acidosis. Procalcitonin is elevated consistent with a bacterial infection and her white count is 40,000. 5. Thrombocytosis of 567,000. 6. Hyponatremia 125. 7. Right middle lobe and right lower lobe pneumonia with surrounding loculated pleural effusion on the right side that replaces almost the entire right chest cavity. 8. Smaller amount of ascites around the liver and spleen and some in the pelvis. 9. Hepatosplenomegaly. The left lobe of the liver is greatly enlarged. RECOMMENDATIONS: Are as follows: 1. We will get the records from [facility] regarding admissions from about 2 years ago when she had an EGD done and a colonoscopy she reports. I agree with proton pump inhibitors. We will check an H and H q. 12 hours and we will check a stool for occult blood. The patient is high probability of going into acute alcohol withdrawal. We will monitor her for this and treat as necessary. 2. We will check the mitochondrial antibody secondary to alkaline phosphatase and GGTP elevations. 3. Agree with antibiotics, broad spectrum. 4. Recheck labs in the morning and transfuse slowly to hemoglobin of 7.0. 5. At some point, she will probably need an EGD, but she should not have an elective procedure now due to the pulmonary issues she is experiencing. She just had a colonoscopy 2 years ago I believe and we will try to get those records and see what she has. Thank you very much once again for allowing me to participate in her care, Dr. Pryor. ��������������������������������������������� <ELECTRONICALLY SIGNED> ���������������������������������������� By: Rachel Xie DO ��������������������������������������������� 02/06/19 0914 [id number] Rachel Xie DO /nt
[2019-02-06 15:52] LABS: BE(vivo) -3.9 mmol/L (-2 to +3); HCO3 21.2 mmol/L (22.0-26.0); PCO2 38.6 mmHg (35.0-45.0); pH 7.357 (7.360-7.450); sO2 97.8 % (92.0-98.0)
[2019-02-06 18:00] LABS: HEMATOCRIT 28.9 % (37.0-47.0); HEMOGLOBIN 9.1 gm/dL (12.0-15.0); MCH 26.5 pg (26.0-34.0); MCHC 31.6 g/dL (28.0-37.0); MCV 83.9 fL (80.0-100.0); RBC 3.45 mil/uL (4.20-5.00); RDW 21.9 % (10.5-14.5); WBC 27.8 thou/uL (4.0-11.0)
[2019-02-06 18:01] LABS: CALCIUM 8.2 mg/dL (8.5-10.1); CREATININE 0.8 mg/dL (0.6-1.0)
[2019-02-06 18:02] LABS: POTASSIUM 4.4 mmol/L (3.5-5.1)
--- NOTE | 2019-02-06 20:15 | NUR ---
END OF SHIFT NOTE. PT FOR THORACOTOMY WITH DECORTICATION TODAY. SEDATED ON PRECEDEX. TOLORATION BIPAP. VSS. DIURESING. CHEST TUBES X 4 DRESSING REINFORCED. BS COARSE.
[2019-02-07] VITALS (24 sets, daily range): BP systolic 89–142; BP diastolic 48–79
[2019-02-07 05:43] LABS: HEMATOCRIT 28.4 % (37.0-47.0); HEMOGLOBIN 9.1 gm/dL (12.0-15.0); MCH 27.2 pg (26.0-34.0); PLATELET COUNT 296 thou/uL (150-400); RBC 3.34 mil/uL (4.20-5.00); RDW 22.2 % (10.5-14.5); WBC 20.5 thou/uL (4.0-11.0)
--- NOTE | 2019-02-07 05:46 | NUR ---
PT IS CONFUSED, RESTLESS AND AGITATED DURING THE NIGHT. ON PRECEDEX GTT, ATIVAN GIVEN PRN. SEVERAL ATTEMPTS TO REMOVE BIPAP AND GET OUT OF BED. TRIED TO REORIENT PT WITH MINIMAL SUCCESS. VSS. AFEBRILE. MEDICATED FOR PAIN. BP STABLE. ON BIPAP DURING THE SHIFT. SATS ABOVE 90%. PT EDUCATED ABOUT THE NEED FOR BIPAP. RIGHT CHEST TUBES IN PLACE AND DRAINING. OUTPUT NOTED. URINE OUTPUT NOTED. FREQUENT TURNS DURING THE NIGHT. NO COMPLAINS PRESENTLY. WILL CONTINUE TO MONITOR PATIENT.
[2019-02-07 06:03] LABS: ALBUMIN 1.2 g/dL (3.4-5.0); CALCIUM 8.4 mg/dL (8.5-10.1); CREATININE 0.8 mg/dL (0.6-1.0); MAGNESIUM 1.6 mg/dL (1.8-2.4); POTASSIUM 4.2 mmol/L (3.5-5.1); TOTAL PROTEIN 6.2 g/dL (6.4-8.2)
[2019-02-07 06:29] LABS: ABSOLUTE NEUTROPHILS 19.7 thou/uL (1.4-8.2)
[2019-02-07 06:32] LABS: ANISOCYTOSIS 3+; PLATELET ESTIMATE NORMAL; POLYCHROMASIA 2+; SCHISTOCYTES FEW
[2019-02-07 08:26] LABS: BE(vivo) -4.6 mmol/L (-2 to +3); HCO3 20.1 mmol/L (22.0-26.0); PCO2 35.2 mmHg (35.0-45.0); PO2 133.4 mmHg (80.0-100.0); pH 7.374 (7.360-7.450); sO2 98.6 % (92.0-98.0)
[2019-02-07 10:05] LABS: FOLIC ACID 11.5 ng/mL (8.6-58.9)
--- NOTE | 2019-02-07 10:29 | NUR ---
Nutrition: Poor intake over admit. Unable to awaken during visit today. Still requiring precedex. Will add supplements to trays. ? if able to place feeding tube for nutrition due to hx varices. REC consider change IVFs to Clinimix PPN at 100 mL/hr to provide some nutrition til pt eating adequately.
[2019-02-07 11:36] LABS: PHOSPHORUS 4.2 mg/dL (2.5-4.9)
--- NOTE | 2019-02-07 15:05 | PATH ---
[facility] [address] [place] [address] PATHOLOGY RPT PROCEDURE Name: KIANA KEVIN Room #: 240-P ADM IN M.R.#: [id number] ������������������ Admission: 01/31/19 ������������������ Date of : 71 Discharge: Report #: [id number] Path Case #: [id number] [facility] Accession Number: [id number] . 01 Material submitted: . pleura - RIGHT PLEURAL PEEL. Modifiers: right . 01 Clinical history: . Right pleural effusion . 02 Diagnosis: Right pleural peel, decortication: - Pleura with marked acute inflammation and extensive fibrinous exudate as well as degeneration. (IUV:forensic pathologist; 02/07/2019) MBR/02/07/2019 . 02 Electronically signed: . Kari Melendrez MD, Pathologist NPI- [id number] . 01 Gross description: . The specimen is received in formalin, labeled "Kiana Kevin, right pleural peel". Received is a moderate amount of exudate mixed with sol-parker possible pleural tissue measuring 14.8 x 10.7 x 1.9 cm in aggregate dimensions. The specimen is submitted representatively in cassette A1. (CAA; 02/06/2019) QAC/QAC . 02 Pathologist provided ICD-10: R09.1 . 02 CPT . 183090 Specimen Comment: Report sent to ,DR DELGADO / DR LIVINGSTON Performed at: [address], [place] [id number] MD Margarito Sellers MD Phone: [phone] Performed at: [address] [id number] MD Kari Melendrez MD Phone: [phone]
--- NOTE | 2019-02-07 18:18 | NUR ---
PATIENT IS ALERT TO SELF, IS AWARE SHE IS IN A HOSPITAL. RE-ORIENTED TO TIME AND SITUATION. SINUS RHYTHM TO SINUS BRADYCARDIA ON EDUCATION PROGRAM SPECIALIST. ON ROOM AIR, COUGH AND DEEP BREATHING ENCOURAGED. TOLERATING 25% OF DINNER INCLUDING GLUCERNA DRINK. TPN STARTED. VARMA PATENT AND DRAINING. ON LIGHT SEDATION. CEST TUBES INTACT. PATIENT UP TO THE CHAIR WITH X2 ASSISTANCE AND GAIT BELT FOR MEALS, MODERATE ASSISTANCE. PAIN MILDLY CONTROLLED WITH MEDICATION. NO SIGNS OF ACUTE DISTRESS NOTED AT THIS TIME. WILL CONTINUE TO MONITOR.
[2019-02-08] VITALS (25 sets, daily range): BP systolic 101–129; BP diastolic 58–78
[2019-02-08 05:44] LABS: HEMATOCRIT 25.9 % (37.0-47.0); HEMOGLOBIN 8.1 gm/dL (12.0-15.0); MCH 26.6 pg (26.0-34.0); MCHC 31.1 g/dL (28.0-37.0); MCV 85.7 fL (80.0-100.0); RBC 3.02 mil/uL (4.20-5.00); RDW 22.4 % (10.5-14.5); WBC 20.4 thou/uL (4.0-11.0)
--- NOTE | 2019-02-08 06:16 | NUR ---
ASSUMED PT CARE AT 1900. VSS. PT DROWSY BUT AWAKE AND ORIENTED TO SELF& TIME. PT REMAINS EDEMATOUS IN ABDOMEN, THIGHS, BILATERAL LEGS AND FEET ALL OF WHICH ARE 3+. PT COMPLAINS OF PAIN, PAIN IS MANAGED WITH FENTANYL AND HYDROCODONE, FENTANYL APPEARS TO BE MORE EFFECTIVE ON PT'S PAIN. PRECEDEX WAS AT 0.2MCG/KG/HR AT THE START OF THE SHIFT, BUT PT CONTINUED TO BE RESTLESS, WITH MILD HALLUCINATIONS AND CONFUSION. PRECEDEX INCREASED TO 1.0 MCG/KG/HR AROUND 4AM THIS MORNING, AFTER WHICH THE PT WAS FINALLY ABLE TO GET SOME SLEEP. PT ATTEMPTED TO HAVE A BM THIS SHIFT BUT WAS TO NO AVAIL. DRESSING CHANGE DONE ON CHEST TUBE SITE IT WAS SOILED. AND PT COMPLAINED OF SOME ITCHING AT THE SITE. PT IS NOW STABLE, STILL SLEEPING AT THIS TIME, MEDS GIVEN AND D/C PER MAR, GOOD URINE OUTPUT OVER NIGHT, URINE REMAINS DARK YELLOW. WILL CONTINUE TO MONITOR PER POC.
[2019-02-08 06:30] LABS: ALBUMIN 1.3 g/dL (3.4-5.0); CALCIUM 8.4 mg/dL (8.5-10.1); CREATININE 0.8 mg/dL (0.6-1.0); MAGNESIUM 1.8 mg/dL (1.8-2.4); PHOSPHORUS 2.5 mg/dL (2.5-4.9); POTASSIUM 3.5 mmol/L (3.5-5.1); TOTAL BILIRUBIN 1.4 mg/dL (<0.1-1.0)
[2019-02-08 08:44] LABS: URINE BILIRUBIN NEGATIVE (Negative); URINE BLOOD TRACE (Negative); URINE CLARITY CLEAR; URINE COLOR YELLOW; URINE GLUCOSE-RANDOM* NEGATIVE (Negative); URINE KETONES NEGATIVE (Negative); URINE NITRITE-REFLEX NEGATIVE (Negative); URINE PROTEIN (DIPSTICK) NEGATIVE (Negative); URINE SPECIFIC GRAVITY 1.025 (1.005-1.035); URINE UROBILINOGEN 0.2 E.U./dl (0.2-1.0)
[2019-02-08 08:45] LABS: URINE LEUKOCYTES-REFLEX 2+ (Negative)
[2019-02-08 09:05] LABS: CASTS None Seen /LPF (None Seen); CRYSTALS None Seen /LPF (None Seen); SQUAMOUS 0-3 Few /LPF (0-3)
[2019-02-08 09:07] LABS: URINE RBC 3-10 Few /HPF (0-2)
[2019-02-08 09:08] LABS: YEAST-REFLEX Present (None Seen)
--- NOTE | 2019-02-08 15:42 | NUR ---
FOLLOWING FOR DC PLANNING. CLINICAL INFO REVIEWED. PT IS POD #2 RIGHT THORACOTOMY WITH DECORTICATION R/T STREP PNEUMONIAE PNEUMONIA WITH EMPHYEMA. ALSO WITH BACTEREMIA AND ALCOHOLIC LIVER DISEASE. REMAINS CONFUSED AND IMPULSIVE AND ON PRECEDEX GTT. CHEST TUBES TO SXN. NOW WITH ILEUS. VERY DEBILITATED AND WORKING WITH PT/OT. [employer] FOLLOWING TO ASSIST PT WITH MEDICAID APPLICATION BUT HAS NOT BEEN ALERT AND ORIENTED ENOUGH TO COMPLETE YET. NO MEDICAL INSURANCE IS BARRIER TO DC PLANNING.
--- NOTE | 2019-02-08 18:58 | HC ---
[facility] [place] [address] CONSULTATION Name: DORITATHANG Jarquin Room #: [facility] IN M.R.#: [id number] Admission: 01/31/19 ������������������ Attend Phys: Ivan Pryor MD Discharge: ������������������ Date of : 71 Report #: [id number] THIS REPORT FOR: //name// CC: FAM unknown Ivan Pryor PULMONARY CONSULTATION REFERRAL PHYSICIAN: Jonathan Altamirano M.D. REASON FOR REFERRAL: Abnormal chest x-ray. HISTORY OF PRESENT ILLNESS: The patient is a 43-year-old white female who presents to the ED with progressive dyspnea. Chest x-ray shows a large right-sided pleural effusion. A Pulmonary consultation was requested. The patient is not a good historian. At this time, she is sedated. Review of the records suggest the patient has a history of alcohol abuse. She drinks about 6-10 beers a week. The patient also smokes about a pack a day. The patient had a history of dyspnea and cough for the past 4 days. She did note that her severe paroxysmal cough has resulted in pain in her ribs. Presently, she is not able to arouse, being sedated for alcohol withdrawal protocol. PAST MEDICAL HISTORY: Notable for depression, anxiety disorder, alcohol abuse and tobacco abuse. PAST SURGICAL HISTORY: Remote history of knee surgery. ALLERGIES: None to medications. HOME MEDICATIONS: Include buspirone and Desyrel. FAMILY HISTORY: Unknown. SOCIAL HISTORY: Tobacco and alcohol use as mentioned above. Otherwise unknown. REVIEW OF SYSTEMS: Deferred as the patient is somnolent at this time. PHYSICAL EXAMINATION: GENERAL: On examination, she is sedated. VITAL SIGNS: Temperature is 98.7 degrees Fahrenheit, pulse is 85, respiratory rate is 19, blood pressure 119/65 mmHg and saturation 97%. HEENT: Normocephalic, atraumatic. [facility] [address] [place] [address] CONSULTATION Name: THANG KEVIN Room #: 240-P [facility] IN [facility].#: [id number] Admission: 01/31/19 ������������������ Attend Phys: Ivan Pryor MD Discharge: ������������������ Date of : 71 Report #: [id number] NECK: Supple, without any lymphadenopathy or thyromegaly. CHEST: Breath sounds are decreased in the right lung field. No obvious wheezes. Few scattered crackles are heard in the left base. CARDIOVASCULAR: Normal S1, S2. There is no murmur, no gallop. There is no JVD. There is no carotid bruit. Pulses are 2+/4+ bilaterally. ABDOMEN: Soft, nontender. No organomegaly or masses felt. GENITOURINARY: Deferred. RECTAL: Deferred. EXTREMITIES: There is no edema, cyanosis or clubbing. LABORATORY DATA: Chest x-ray, as mentioned above, showing large right-sided pleural effusion. CT chest shows large loculated right pleural effusion, there appears to be rounded abscess-appearing cavity in the right lower lobe. No evidence of pulmonary embolus. Small amount of perihepatic and perisplenic ascites is noted along with cirrhosis. Sodium 127, potassium 4.1, chloride 94, CO2 of 22, BUN is 23 and creatinine is 1.3. Liver enzymes moderately abnormal. WBC is 30,600 and hemoglobin on admission was 3.8. There was no significant bandemia. Albumin 1.7. Troponin is normal. CBC indices show ,microcytic, hypochromic. IMPRESSION: 1. Large right-sided pleural effusion, loculated, appears to be complicated, probable empyema, possible lung abscess within the right lower lobe. Etiology probably related to pneumonia, likely aspiration. 2. Alcohol abuse. 3. Tobacco abuse. 4. Profound anemia. It is microcytic, hypochromic. No obvious signs of gastrointestinal bleed. 5. Profound protein-calorie malnutrition with albumin at 1.7. 6. Acute hypoxic respiratory failure due to above processes. 7. History of cirrhosis, history of alcohol abuse, was found to be intoxicated in the Emergency Department. 8. Acute kidney injury. RECOMMENDATIONS: I agree with broad-spectrum antibiotics, Thoracic Surgery consultation. The patient will likely need either prolonged chest tube placement with drainage or surgical decortication. Given the history of tobacco use, I would initiate bronchodilator therapy. Baseline spirometry will be helpful. DVT and GI prophylaxis recommended. [address] [address] CONSULTATION Name: KEVINTHANG Room #: 240-P ADM IN M.R.#: [id number] Admission: 01/31/19 ������������������ Attend Phys: Ivan Pryor MD Discharge: ������������������ Date of : 71 Report #: [id number] Thank you for this consultation. ��������������������������������������������� <ELECTRONICALLY SIGNED> ���������������������������������������� By: Venkat Lees MD ��������������������������������������������� 02/08/19 1858 1834 [id number] Venkat Lees MD /nt
[2019-02-09] VITALS (24 sets, daily range): BP systolic 96–136; BP diastolic 49–86
--- NOTE | 2019-02-09 02:20 | NUR ---
PTS ABDOMEN MORE DISTENDED AND BILAT LEGS AND FEET MORE EDEMATOUS. RESTLESS PTS STATES THAT HER BELLY FEELS BETTER. KUB ORDERED PER Esdras MARKHAM SPLICER MACHINE OPERATOR AM LAB DRAWN. WILL CONBT TO MONITOR.
[2019-02-09 03:04] LABS: ABSOLUTE NEUTROPHILS 13.9 thou/uL (1.4-8.2); BASOPHILS 0.2 % (0.0-2.0); EOSINOPHILS 1.1 % (0.0-3.0); HEMATOCRIT 25.8 % (37.0-47.0); LYMPHOCYTES 8.5 % (24.0-44.0); MCH 26.8 pg (26.0-34.0); MCHC 30.8 g/dL (28.0-37.0); MCV 86.9 fL (80.0-100.0); MONOCYTES 8.4 % (1.0-8.0); PLATELET COUNT 251 thou/uL (150-400); POLYS 81.8 % (36.0-66.0); RBC 2.97 mil/uL (4.20-5.00)
[2019-02-09 03:22] LABS: CALCIUM 7.9 mg/dL (8.5-10.1); CREATININE 0.8 mg/dL (0.6-1.0); MAGNESIUM 1.5 mg/dL (1.8-2.4); PHOSPHORUS 2.8 mg/dL (2.5-4.9); POTASSIUM 3.4 mmol/L (3.5-5.1)
--- NOTE | 2019-02-09 06:00 | NUR ---
pt resting quietly ast present. remains on precedex gtt. sinus rhythm bathed. 1000 cc uo and a total of 400 cc from chest tube. abdomen remains very distended. leg and feet also very edematous. will cont to monitor.
--- NOTE | 2019-02-09 17:30 | NUR ---
PATIENT ASSESSMENTS AND VITAL SIGNS DOCUMENTED PLAN OF CARE IS TO CONTINUE TO MONITOR CHEST TUBE OUTPUT, NEURO STATUS, TITRATE PRECEDEX FOR PATIENT COMFORT, MONITOR SAFETY OF TUBES AND PREVENT PATIENT FORM PULLING LINES OUT. NURSE HAS PROVIDED REORIENTATION FREQUENTLY THROUGHOUT THE DAY. PATIENT ABLE TO ANSWER ORIENTATION QUESTIONS, HOWEVER SHE HAS HALLUCINATIONS AND GETS AGGITATED AND THEN STARTS TO PULL AT LINES. PER DR. CHRISTIE, CHEST TUBE ATRIUM SWITCHED TO A SINGLE CHAMBER ATRIUM X2. FOUR CHEST TUBES TOTAL Y-D TOGETHER. PLAN OF CARE IS TO KEEP PATIENT COMFORTABLE AND CALM THROUGHOUT THE WEEKEND, THEN WORK ON INCREASING ACTIVITY AND RE-EVALUATE CHEST TUBE REQUIREMENTS.
[2019-02-09 18:19] LABS: MAGNESIUM 1.6 mg/dL (1.8-2.4); POTASSIUM 3.6 mmol/L (3.5-5.1)
--- NOTE | 2019-02-09 19:00 | NUR ---
I have reviewed the documentation by HERVE SUAREZ from 02/09/2019 0700 to 02/09/2019 1900 and I concur with it.
[2019-02-10] VITALS (24 sets, daily range): BP systolic 116–150; BP diastolic 44–87
--- NOTE | 2019-02-10 06:00 | NUR ---
PT RESTING QUIETLY AT PRESENT. PRECEDEX REMAINS MAXED AT 1.4 MCG ATIVAN GIVEN X 2 DOSES TONIGHT FOR AGITATION. ATTEMPTING TO GET OUT OF BED. SINUS RHYTHM. UO 1600 CC AND TOTAL OF 190 CC FROM CHEST TUBES THIS SHIFT. BATHED. ELENO ICE CHIPS. WILL CONT TO MONITOR CLOSELY.
[2019-02-10 06:12] LABS: CALCIUM 8.1 mg/dL (8.5-10.1); CREATININE 0.7 mg/dL (0.6-1.0); MAGNESIUM 1.6 mg/dL (1.8-2.4); POTASSIUM 3.7 mmol/L (3.5-5.1)
[2019-02-10 07:31] LABS: HEMATOCRIT 25.8 % (37.0-47.0); HEMOGLOBIN 8.1 gm/dL (12.0-15.0); MCHC 31.3 g/dL (28.0-37.0); MCV 86.2 fL (80.0-100.0); RBC 2.99 mil/uL (4.20-5.00); RDW 22.6 % (10.5-14.5); WBC 16.2 thou/uL (4.0-11.0)
--- NOTE | 2019-02-10 19:16 | NUR ---
PATIENT ASSESSMENTS AND VITAL SIGNS DOCUMENTED. SHE HAS BEEN INCREASINGLY AGGITATED AND RESTLESS TODAY. PULLING AT TUBES AND LINES, ATTEMPTING TO CLIMB OUT OF BED. REDIRECTION PROVIDED WITHOUT SUCCESS. CHEST TUBES REMIAN INTACT DOCUMENTED. ENCOURAGE DEEP BREATHING AND COUGHING. VARMA IN PLACE WITH INTAKE AND OUTPUTS DOCUMENTED. SHE IS HALLUCINATING SAYING WE ARE IN HER HOUSE AND NEED TO GET OUT. HER LUNG SOUNDS ARE COURSE THIS EVENING, HOWEVER HER O2 SATURATIONS ARE >94%. ENCOURAGE DEEP BREATHING AND COUGH, HOWEVER WITH DEEP BREATHS SHE CRIES AND SAYS IT HURTS. REPORT GIVEN TO TRIMMER HAND RN FOR CONTINUATION OF CARE.
--- NOTE | 2019-02-10 19:24 | NUR ---
I have reviewed the documentation by HERVE CHAVARRIA from 02/10/2019 0700 to 02/10/2019 192 and I concur with it.
--- NOTE | 2019-02-10 23:15 | NUR ---
PT EXTREMELY RESTLESS THROWING LEGS OVER SIDE OF BED AND MOANING. PT IS MAXED ON PRECEDEX GTT. RYDER WELDER RAILCAR MECHANIC NOTIFIED. HALDOL 2 MG IV ORDERED AND GIVEN. WILL CONT TO MONITOR.
[2019-02-11] VITALS (23 sets, daily range): BP systolic 98–141; BP diastolic 56–90
[2019-02-11 05:19] LABS: HEMATOCRIT 24.9 % (37.0-47.0); MCH 27.3 pg (26.0-34.0); MCHC 32.1 g/dL (28.0-37.0); RBC 2.92 mil/uL (4.20-5.00); RDW 22.7 % (10.5-14.5); WBC 17.9 thou/uL (4.0-11.0)
[2019-02-11 05:33] LABS: CREATININE 0.7 mg/dL (0.6-1.0); MAGNESIUM 1.5 mg/dL (1.8-2.4); PHOSPHORUS 3.3 mg/dL (2.5-4.9); POTASSIUM 3.7 mmol/L (3.5-5.1)
--- NOTE | 2019-02-11 06:00 | NUR ---
VSS PT RESTING QUIETLY. SINUS RHYTHM. VSS LUNGS COARSE IN UPPER LOBES CHEST TUBES INTACT. 1000 CC UO AND TOTAL OF 80 CC CHEST TUBE DRAINAGE. THIS SHIFT. REMAINS ON PRECEDEX GTT AT 1.4 MCG. TPN AT 40 CC/HR. BATHED. WILL CONT TO MONITOR.
--- NOTE | 2019-02-11 06:15 | NUR ---
PT SUDDENLY GRABBED IV TUBING AND WOULD NOT LET GO. RESTRAINTS PLACED PER ORDER RYDER MORTGAGE BANKER. WILL CONBT TO MONITOR
--- NOTE | 2019-02-11 16:53 | O ---
[facility] [place] [address] OPERATIVE REPORT Name: THANG KEVIN Room #: 240-P ADM IN M.R.#: [id number] Admission: 01/31/19 ������������������ Attend Phys: Ivan Pryor MD Discharge: ������������������ Date of : 71 Report #: [id number] THIS REPORT FOR: //name// CC: FAM unknown Ivan Pryor DATE OF SERVICE: 02/06/2019 PREOPERATIVE DIAGNOSIS: Empyema, right chest. POSTOPERATIVE DIAGNOSIS: Empyema, right chest. PROCEDURE: Bronchoscopy, right video-assisted thoracoscopy, right thoracotomy with decortication. SURGEON: Nir Sandoval MD ANESTHESIA: General. INDICATIONS: The patient is a 43-year-old who has evidence of a parapneumonic effusion. This was a loculated effusion. Two chest catheters failed to adequately drain the effusion and the patient who was originally admitted with sepsis and has undergone alcohol withdrawal, now appears to be stable enough for more definitive treatment. FINDINGS AND TECHNIQUE: After general anesthesia was established, flexible diagnostic bronchoscopy was performed. No endobronchial lesions were noted and air flow dividers appeared sharp and there was minimal inflammatory change. Double lumen endotracheal tube was placed and its position ascertained under bronchoscopic guidance. The patient was positioned with right side up. Exposure was obtained initially with video-assisted thoracoscopy port. The scope was introduced and after a large amount of straw-colored fluid was aspirated, we found that the lung was encased with partly purulent, partly fibrinous exudate. It was apparent that we would need to do a formal decortication through a thoracotomy. As such, the exposure was obtained through a posterolateral thoracotomy. Chest was entered through an available interspace. The predominant area of exudate was in the oblique fissure and around the lower lobe, although the all 3 lobes were decorticated. In particular, in the oblique fissure, there was an area of congealed, seropurulent exudate. It was a tedious process, but when the entire lung had been decorticated, then we placed four chest tubes to drain the anterior, lateral, posterior, and inferior pleural surfaces. The chest was irrigated with large amount of warm [facility] [address] [place] [address] OPERATIVE REPORT Name: THANG KEVIN Room #: 240-P [facility] IN M.R.#: [id number] Admission: 01/31/19 ������������������ Attend Phys: Ivan Pryor MD Discharge: ������������������ Date of : 71 Report #: [id number]. Hemostasis was ascertained and the chest was closed in layers. The patient tolerated the procedure well and was taken to the recovery area in good condition. All counts were reported as correct. ��������������������������������������������� <ELECTRONICALLY SIGNED> ���������������������������������������� By: Nir Sandoval MD ��������������������������������������������� 02/11/19 1653 1632 [id number] Nir Sandoval MD /nt
[2019-02-12] VITALS (15 sets, daily range): BP systolic 106–157; BP diastolic 61–86
--- NOTE | 2019-02-12 05:32 | NUR ---
DID NOT SLEEP MUCH THIS SHIFT. RESTLESS NOC. REMAINS ORIENTED TO PERSON AND PLACE ONLY. FORGETFUL. ASSIST TO REPOSITION NEEDED FOR COMFORT. PATIENT MOVES AROUND IN BED. IS EASILY REDIRECTED. WORKING ON GOALS AND PLAN OF CARE FOR NOC. TOLERATING SOFE DIET. PASSING GAS BUT NO BOWEL MOVEMENT THIS SHIFT. ASSISTED UP TO COMODE WITH 2 PERSON AND GAIT BELT. PATIENT REMAINS WEAK. CONTINUE TO ASSES CLOELSY.
[2019-02-12 05:42] LABS: HEMATOCRIT 25.1 % (37.0-47.0); MCH 26.9 pg (26.0-34.0); MCV 84.3 fL (80.0-100.0); PLATELET COUNT 278 thou/uL (150-400); RBC 2.97 mil/uL (4.20-5.00); RDW 23.1 % (10.5-14.5); WBC 20.8 thou/uL (4.0-11.0)
[2019-02-12 05:50] LABS: ALBUMIN 1.4 g/dL (3.4-5.0); CALCIUM 8.3 mg/dL (8.5-10.1); CREATININE 0.8 mg/dL (0.6-1.0); MAGNESIUM 1.8 mg/dL (1.8-2.4); PHOSPHORUS 3.6 mg/dL (2.5-4.9); POTASSIUM 3.8 mmol/L (3.5-5.1); TOTAL BILIRUBIN 2.3 mg/dL (<0.1-1.0); TOTAL PROTEIN 6.5 g/dL (6.4-8.2)
[2019-02-12 06:17] LABS: ABSOLUTE NEUTROPHILS 17.7 thou/uL (1.4-8.2)
[2019-02-12 06:18] LABS: ANISOCYTOSIS 3+; PLATELET ESTIMATE NORMAL; POLYCHROMASIA 2+
--- NOTE | 2019-02-12 13:45 | NUR ---
REPORT CALLED TO BENNY SIMON ON 4E - ROOM 419
--- NOTE | 2019-02-12 14:00 | NUR ---
FOLLOWIING [facility] DC PLANNING. CLINICAL INFO REVIEWED. PT HOSPITALIZED 12 DAYS NOW AND SEVERAL DAYS POST RIGHT THORACOTOMY AND DECORTICATION R/T EMPHYEMA. CHEST TUBES OUT 02/11/19. PT WITH HX ETOHISM AND LIVER DISEASE, ETOH WITHDRAWAL/ENCEPHALOPATHY REQUIRING PRECEDEX GTT-THIS WAS DC'D 02/11/19. MET WITH PT THIS AFTERNOON. SHE IS ALERT AND ORIENTED X4 AT PRESENT, PERIODS OF CONFUSION. PT LIVES IN HOUSE WITH S.OBrenda HOWARD. PT WORKS [employer] BUT NO MEDICAL BENEFITS. [employer] HAS BEEN FOLLOWING FOR MEDICAID APPLICATION BUT PT HAD NOT BEEN LUCID ENOUGH TO SIGN APPLICATION. DISCUSSED MEDICAID ALAINA AND [employer]'S ASSISTANCE WITH PROCESS AND PT IS AGREEABLE AND ABLE TO COMPLETE ALAINA TODAY. MAYTE FROM [employer] HERE AT 1400 AND WILL ATTEMPT TO GET ALAINA SIGNED BY PT. PT STATES SHE HAD DONE INPT ETOH TREATMENT A COUPLE YEARS AGO AND HAD 7 MONTH PERIOD OF SOBRIETY BEFORE RETURNING TO ETOH. STATES DID AA WITH SPONSOR BUT HAS NOT REACHED OUT TO SPONSOR SINCE FEBRUARY 2018. DC PLAN TO RETURN HOME WHEN MEDICALLY STABLE. WORKING WITH PT/OT. 5N JENNIFER STAY/MEDICAID PENDING IF NEEDED. UPDATE TO 4E CM/RADIATION ONCOLOGY NURSE
[2019-02-13 03:10] VITALS: BP 130/71
--- NOTE | 2019-02-13 03:36 | NUR ---
PATIENT ALERT AND ORIENTED X4. C/O PAIN IN ABD, GASSY FEELING. OFFERED TYLENOL BUT REFUSED. WANTED LINZESS, BUT NOT ON PHARMACY LIST. DIAL POLISHER WAS CALLED AND SIMETHACONE WAS ORDERED AND GIVEN. HAD AN EPISODE OF NAUSEA. NO EMESIS. AWAKE MOST OF NIGHT. ABD EXTREMELY SWOLLEN. HAS GENERALIZED EDEMA.
[2019-02-13 05:35] LABS: HEMATOCRIT 23.3 % (37.0-47.0); HEMOGLOBIN 7.5 gm/dL (12.0-15.0); MCH 27.1 pg (26.0-34.0); MCHC 32.4 g/dL (28.0-37.0); MCV 83.8 fL (80.0-100.0); RBC 2.78 mil/uL (4.20-5.00); RDW 22.5 % (10.5-14.5); WBC 18.3 thou/uL (4.0-11.0)
[2019-02-13 05:41] LABS: CREATININE 0.7 mg/dL (0.6-1.0); POTASSIUM 3.9 mmol/L (3.5-5.1)
[2019-02-13 06:12] LABS: ALBUMIN 1.4 g/dL (3.4-5.0); DIRECT BILIRUBIN 2.2 mg/dL (<0.1-0.3); TOTAL BILIRUBIN 2.8 mg/dL (<0.1-1.0); TOTAL PROTEIN 6.6 g/dL (6.4-8.2)
[2019-02-13 08:58] VITALS: BP 139/79
[2019-02-13 12:00] VITALS: BP 123/79
--- NOTE | 2019-02-13 12:00 | NUR ---
PT HAD A WITNESSED AND ASSISTED FALL IN ROOM AT APPROX 11:35. PT WAS TRANSFERING FROM THE BED TO THE CHAIR WHEN SHE BECAME DIZZY AND SAT DOWN TO THE FLOOR WITNESSED BY THIS RN. POST FALL ASSESSMENT COMPLETED. VSS. FALL REPSONSE INITIATED. PHYSICIAN NOTIFIED, NO NEW ORDERS. PT HAD GAIT BELT, WALKER, YELLOW WRIST BAND, YELLOW SOCKS, AND BED ALARM IN PLACE. PT HAS A NEW BACK BRUISE/ABRASION, PICTURE TAKEN. PT IN STABLE CONDITION POST FALL.
[2019-02-13 12:11] VITALS: BP 123/79
--- NOTE | 2019-02-13 17:13 | NUR ---
PT RETURNED FROM [facility] IN STABLE CONDITION AT 17:00. DRESSING IN PLACE C/D/I RIGHT CHEST, TO BE REMOVED IN 24 HOURS.
[2019-02-13 17:41] LABS: CLARITY SLIGHTLY CLOUDY; COLOR YELLOW; SOURCE ABDOMINAL; TOTAL VOLUME 60 mL
[2019-02-13 17:44] LABS: SOURCE ABDOMINAL
[2019-02-13 17:57] VITALS: BP 135/42
[2019-02-13 17:57] LABS: BF NUCLEATED CELLS 411; BF RBC 169
[2019-02-13 18:47] LABS: BF MACROPHAGE 22; BF NEUTROPHILS 75
[2019-02-13 19:16] VITALS: BP 129/76
--- NOTE | 2019-02-14 03:28 | NUR ---
ASSESSMENT: PT REMAIN ALERT AND ORIENT TIMES FOUR. UP TO BSC WITHOUT FALLS. SAFETY MEASURES FOLLOWED, GB USED. VSS, AFEBRILE. MRSA CONTACT ISOLATION FOLLOWED. PRN PAIN MEDICATIONS GIVEN WITH GOOD RESULTS. PT SLEPT MOST OF NIGHT. NO BM. RIGHT TL PICC PATENT. TOLERATING PO INTAKE. SLOW PROGRESS TOWARDS DC GOALS. WILL CONTINUE TO MONITOR.
[2019-02-14 04:31] VITALS: BP 121/73
[2019-02-14 05:05] LABS: HEMATOCRIT 22.9 % (37.0-47.0); HEMOGLOBIN 7.2 gm/dL (12.0-15.0); MCH 26.6 pg (26.0-34.0); MCHC 31.4 g/dL (28.0-37.0); MCV 84.7 fL (80.0-100.0); RBC 2.7 mil/uL (4.20-5.00); WBC 13.9 thou/uL (4.0-11.0)
[2019-02-14 05:16] LABS: INR 1.2; PROTIME 12.2 Seconds (9.3-11.4)
[2019-02-14 05:23] LABS: CALCIUM 8.3 mg/dL (8.5-10.1); CREATININE 0.8 mg/dL (0.6-1.0); POTASSIUM 3.6 mmol/L (3.5-5.1)
[2019-02-14 08:00] VITALS: BP 118/68
--- NOTE | 2019-02-14 12:08 | NUR ---
ASSESMENT COMPLETED. VSS. A/O 2-3. NO NOTED SOA. NO NV. PT RESTING IN BED APPEARS COMFORTABLE. CALL LIGHT IN REACH. BED ALARM ON. WILL CONT. TO MONITOR.
[2019-02-14 14:09] LABS: BODY FLUID ALBUMIN 0.2 g/dL (()); BODY FLUID AMYLASE 21 U/L (()); BODY FLUID GLUCOSE 104 mg/dL (()); BODY FLUID LDH 58 IU/L (()); BODY FLUID PROTEIN 0.8 g/dL (())
--- NOTE | 2019-02-14 16:09 | NUR ---
I have reviewed the documentation by VANESA RIZZO from 02/14/19 to 02/14/19 and I concur with it. TYLER BAKER
[2019-02-14 16:20] VITALS: BP 137/70
--- NOTE | 2019-02-14 17:49 | NUR ---
NO CHANGE SINCE AM ASSESMENT. PT APPEARS COMFORTABLE. LEGS WRAPPED WITH RAGHAV.
[2019-02-14 19:30] VITALS: BP 108/61
[2019-02-14 19:45] VITALS: BP 108/61
--- NOTE | 2019-02-15 04:27 | NUR ---
ASSUMED CARE FROM PREVIOUS SHIFT PT ALERT AND ORIENTED X4 UP TO BSC WITH SOFT STOOL AND ALLAN URINE, PT C/O ITCHING AFTER OINTMNET APPLIED TO NASAL, CALLED AND RECIEVED ORED FOR BENADRLY. PT RESTED WELL THROUGHOUT HOURLY ROUNDS DENIES SOA OR CHEST PAIN. WILL CONTINUE WITH CURRENT PLAN OF CARE. WILL REPORTY CHANGES
[2019-02-15 05:26] VITALS: BP 128/83
[2019-02-15 07:10] VITALS: BP 125/79
[2019-02-15 07:41] LABS: INR 1.2; PROTIME 12.5 Seconds (9.3-11.4)
[2019-02-15 07:53] LABS: ALBUMIN 1.3 g/dL (3.4-5.0); DIRECT BILIRUBIN 1.6 mg/dL (<0.1-0.3); TOTAL BILIRUBIN 2.2 mg/dL (<0.1-1.0); TOTAL PROTEIN 6.3 g/dL (6.4-8.2)
--- NOTE | 2019-02-15 11:41 | NUR ---
ASSESMENT COMPLETED. VSS. A/O. PAIN PARTIALLY RELIEVED BY MEDS ORDERED. NO NOTED SOA. NO NV. ANXIOUS. BATH GIVEN TODAY. PT RESTING IN BED. UP WITH ASSIST. FALL PREC. INTACT. WILL CONT. TO MONITOR.
--- NOTE | 2019-02-15 11:58 | NUR ---
Following for d/c planning. Per RN, CM will vouch for medications. Took prescriptions to pharmacy and CM to pay for medication. Prescription will be locked into unit pharmacy. No other needs identified.
[2019-02-15] MEDS ORDERED: AMOXICILLIN 50500 MG PO (12:23)
[2019-02-15 17:15] VITALS: BP 111/65
[2019-02-15 19:30] VITALS: BP 119/69
--- NOTE | 2019-02-16 02:23 | NUR ---
Assumed care of pt at 1900. Pt complaints of pain on her back and lower extremities. Diclofenac cream applied and relief obtained. Pt lower extremities re-wrapped with mychal bandage. Heating pad in place. SBA to bedside commode. Edema on bilateral lower extremities. Abdomen distended. Fall precautions in place. Call light within reach. Will continue to monitor.
[2019-02-16 04:55] VITALS: BP 108/84
[2019-02-16 07:30] VITALS: BP 108/60
[2019-02-16] MEDS ORDERED: PEPCID20 MG PO (12:24)
[2019-02-16] MEDS ORDERED: FUROSEMIDE20 MG/2 ML PO (12:24)
[2019-02-16 13:41] VITALS: BP 108/60
--- NOTE | 2019-02-16 14:31 | NUR ---
DC INSTRUCTIONS GIVEN TO PT. PT VERBALIZED UNDERSTANDING. PT GIVEN DC MEDICATIONS. PT TO DC HOME WITH SELF CARE IN STRABLE CONDITION.
--- NOTE | 2019-02-19 13:06 | PATH ---
[facility] [address] [place] [address] PATHOLOGY RPT PROCEDURE Name: THANG KEVIN Room #: 419-P [facility] .R.#: [id number] ������������������ Admission: 01/31/19 ������������������ Date of : 71 Discharge: 02/16/19 Report #: [id number] Path Case #: [id number] Note [facility] Accession Number: [id number] TESTS RESULT FLAG UNITS REF RANGE LAB Clinician Provided Cytology Information No. of containers..01 Other (Miscellaneous) Source: ABDOMINAL FLUID DIAGNOSIS: 02 ABDOMINAL FLUID NEGATIVE FOR MALIGNANT CELLS. MESOTHELIAL CELLS ARE PRESENT. THIS INTERPRETATION INCLUDES EVALUATION OF A CELL BLOCK. COMMENT, INFLAMMATORY CELLS ACUTE AND CHRONIC ARE PRESENT ALSO. Signed out by: 02 Kings Trujillo MD, Pathologist NPI- [id number] Performed by: 01 Katya Stanford, Clinical Orthoptist ([facility]) Gross description: 01 20ML, YELLLOW, CLEAR /LCS FLAG LEGEND: L-Low Normal,H-High Normal,LL-Alert Low,HH-Alert High <-Panic Low,>-Panic High,A-Abnormal,AA-Critical Abnormal Performed at: [address] [place] [address] Margarito Sellers MD, [address] [id number] Kari Melendrez MD, Specimen Comment: A courtesy copy of this report has been sent to Specimen Comment: [phone], . Specimen Comment: Report sent to / DR DELGADO Specimen Comment: A duplicate report has been generated due to demographic updates. Performed at: [address], [place], [place] [id number] MD Margarito Sellers MD Phone: [phone]
== END 2019-02-16 14:40 | disposition home or self-care (01) | DRG 853 ==
LOC: ER 22:23 → ICU 01-31 01:06 → EROBS 01-31 01:06 → ICU 01-31 02:36 → 4E 02-12 13:45 → ENTRNSPT 02-12 13:45 → 4E 02-12 13:45 → EDTRNSPTSTS 02-12 13:48 → 4E 02-16 14:40
PROVIDERS: Anesthesiology; Emergency Medicine; Hospitalist; Internal Medicine Gastroenterology; Internal Medicine Pulmonary Disease; Nurse Practitioner; Nurse Practitioner Family; Pediatrics; Physician Assistant; Specialist; ADMIT Internal Medicine
PROC: 30233K1 Transfusion of Nonautologous Frozen Plasma into Peripheral Vein, Percutaneous Approach (ICD-10-PCS; principal; 2019-01-31)
PROC: 02HV33Z Insertion of Infusion Device into Superior Vena Cava, Percutaneous Approach (ICD-10-PCS; principal; 2019-01-31)
PROC: 30233N1 Transfusion of Nonautologous Red Blood Cells into Peripheral Vein, Percutaneous Approach (ICD-10-PCS; principal; 2019-01-31)
PROC: 0W9930Z Drainage of Right Pleural Cavity with Drainage Device, Percutaneous Approach (ICD-10-PCS; principal; 2019-01-31)
PROC: 0B9K4ZZ Drainage of Right Lung, Percutaneous Endoscopic Approach (ICD-10-PCS; 2019-02-06)
PROC: 0BNF0ZZ Release Right Lower Lung Lobe, Open Approach (ICD-10-PCS; 2019-02-06)
PROC: 0W9900Z Drainage of Right Pleural Cavity with Drainage Device, Open Approach (ICD-10-PCS; 2019-02-06)
PROC: 5A09357 Assistance with Respiratory Ventilation, Less than 24 Consecutive Hours, Continuous Positive Airway Pressure (ICD-10-PCS; 2019-02-06)
PROC: 0BJ08ZZ Inspection of Tracheobronchial Tree, Via Natural or Artificial Opening Endoscopic (ICD-10-PCS; 2019-02-06)
PROC: 0BNC0ZZ Release Right Upper Lung Lobe, Open Approach (ICD-10-PCS; 2019-02-06)
PROC: 0BND0ZZ Release Right Middle Lung Lobe, Open Approach (ICD-10-PCS; 2019-02-06)
PROC: 5A09357 Assistance with Respiratory Ventilation, Less than 24 Consecutive Hours, Continuous Positive Airway Pressure (ICD-10-PCS; 2019-02-07)
PROC: 5A09357 Assistance with Respiratory Ventilation, Less than 24 Consecutive Hours, Continuous Positive Airway Pressure (ICD-10-PCS; 2019-02-08)
PROC: 0W9G3ZZ Drainage of Peritoneal Cavity, Percutaneous Approach (ICD-10-PCS; 2019-02-13)
DX: A41.9 Sepsis, unspecified organism (principal); J96.01 Acute respiratory failure with hypoxia; J86.9 Pyothorax without fistula; J69.0 Pneumonitis due to inhalation of food and vomit; G92 Toxic encephalopathy; J13 Pneumonia due to Streptococcus pneumoniae; E87.2 Acidosis; E87.1 Hypo-osmolality and hyponatremia; N17.9 Acute kidney failure, unspecified; E46 Unspecified protein-calorie malnutrition; N39.0 Urinary tract infection, site not specified; J90 Pleural effusion, not elsewhere classified; K76.6 Portal hypertension; F10.230 Alcohol dependence with withdrawal, uncomplicated; F05 Delirium due to known physiological condition; D68.9 Coagulation defect, unspecified; K56.7 Ileus, unspecified; K70.31 Alcoholic cirrhosis of liver with ascites; F32.9 Major depressive disorder, single episode, unspecified; K72.90 Hepatic failure, unspecified without coma; R65.20 Severe sepsis without septic shock; D72.823 Leukemoid reaction; D47.3 Essential (hemorrhagic) thrombocythemia; R16.2 Hepatomegaly with splenomegaly, not elsewhere classified; B95.62 Methicillin resistant Staphylococcus aureus infection as the cause of diseases classified elsewhere; F41.9 Anxiety disorder, unspecified; D50.9 Iron deficiency anemia, unspecified; F17.210 Nicotine dependence, cigarettes, uncomplicated; Z68.33 Body mass index [BMI] 33.0-33.9, adult; Z79.899 Other long term (current) drug therapy; Z83.3 Family history of diabetes mellitus; Z82.49 Family history of ischemic heart disease and other diseases of the circulatory system; Z83.49 Family history of other endocrine, nutritional and metabolic diseases
CPT/HCPCS: 10078; 10084; 27000; 47405; 50010; 50011; 50101; 50386; 50417; 50497; 50498; 50607; 50649; 51301; 52265; 54118; 56524; 56525; 56526; 56527; 56528; 62110; 62900; 65020; 65040; 65090; 65105; 65129; 70005

== ENCOUNTER 2020-09-09 13:07 | Emergency (ER) | payer OTHER ==
[~2020-09-09] VITALS: Ht 167.6 cm; Wt 77.1 kg
[~2020-09-09 13:07] MED LIST changes: +AMOXICILLIN 50500 MG PO; +BUSPIRONE HCL10 MG PO; +FUROSEMIDE20 MG/2 ML PO; +HYDROXYZINE PA100 MG PO; +PEPCID20 MG PO; +TRAZODONE HCL50 MG PO
[2020-09-09 14:10] LABS: PLATELET COUNT 103 thou/uL (150-400)
[2020-09-09 14:12] LABS: HEMATOCRIT 24.1 % (37.0-47.0); MCH 20.5 pg (26.0-34.0); MCV 70.5 fL (80.0-100.0); RBC 3.42 mil/uL (4.20-5.00); RDW 22.9 % (10.5-14.5); WBC 14.3 thou/uL (4.0-11.0)
[2020-09-09 14:13] LABS: CALCIUM 8.6 mg/dL (8.5-10.1); CREATININE 0.9 mg/dL (0.6-1.0); POTASSIUM 3.9 mmol/L (3.5-5.1)
[2020-09-09 14:19] LABS: ALBUMIN 2.7 g/dL (3.4-5.0); TOTAL PROTEIN 8.6 g/dL (6.4-8.2)
[2020-09-09 14:46] LABS: ABSOLUTE NEUTROPHILS 12.3 thou/uL (1.4-8.2); MICROCYTES 1+; POLYCHROMASIA SLIGHT
[2020-09-09 14:47] LABS: ANISOCYTOSIS 2+; HYPOCHROMASIA 3+
[2020-09-09 14:48] LABS: LARGE PLATELETS OCCASIONAL
[2020-09-09] MEDS ORDERED: KEFLEX500 M1 PO (16:01)
[2020-09-09] MEDS ORDERED: BACTRIM DS TAB1 EACH PO (16:01)
[2020-09-09 16:06] VITALS: BP 115/65
[2020-09-09] MEDS ORDERED: ULTRAM 50MG TAB50 MG PO (16:15)
[2020-09-10] MEDS ORDERED: BACTRIM DS TAB1 EACH PO (16:44)
[2020-09-10] MEDS ORDERED: KEFLEX500 M1 PO (16:44)
== END 2020-09-09 16:06 | disposition home or self-care (01) ==
LOC: ER 13:07
PROVIDERS: Physician Assistant
DX: L03.116 Cellulitis of left lower limb (principal); R23.8 Other skin changes; R11.0 Nausea; F41.9 Anxiety disorder, unspecified; F32.9 Major depressive disorder, single episode, unspecified; Z20.828 Contact with and (suspected) exposure to other viral communicable diseases; Z79.2 Long term (current) use of antibiotics; Z79.899 Other long term (current) drug therapy; Z87.891 Personal history of nicotine dependence